=== PATIENT | male | born 1985 | race Caucasian/White ===

== ENCOUNTER 2016-08-18 23:46 | Emergency (ER) | payer OTHER | END 2016-08-19 01:23 | disposition home or self-care (01) | LOC: ER 23:46 | DX: F41.0 Panic disorder [episodic paroxysmal anxiety] (principal); Z88.0 Allergy status to penicillin; Z88.8 Allergy status to other drugs, medicaments and biological substances | CPT/HCPCS: 36415; 96361; 96374; 96375; J2060 ==